=== PATIENT | female | born 1990 | race Caucasian/White ===

== ENCOUNTER 2018-08-08 02:47 | Emergency (ER) | payer SELFPAY ==
[2018-08-08 03:31] VITALS: BP 119/68
== END 2018-08-08 05:15 | disposition left against medical advice (07) ==
LOC: ED 02:47
DX: R21 Rash and other nonspecific skin eruption (principal); Z53.21 Procedure and treatment not carried out due to patient leaving prior to being seen by health care provider

== ENCOUNTER 2018-11-24 19:57 | Emergency (ER) | payer SELFPAY ==
[2018-11-24 20:30] VITALS: BP 106/73
--- NOTE | 2018-11-24 20:31 | Emergency Department Report ---
Blank Doc - Documentation Documentation: 28 y.o. female presents to emergency room with evaluation of sharp pain. Delilah ent reports pain was sharp which has resolved. History of chest pain associated with anxiety. States symptoms started after discontinuous of adderal after high school. cc: palpations and SOB EKG ordered MSE complete Fast Track for evaluation
== END 2018-11-24 21:45 | disposition left against medical advice (07) ==
LOC: ED 19:57
DX: R06.02 Shortness of breath (principal); R07.9 Chest pain, unspecified; Z53.21 Procedure and treatment not carried out due to patient leaving prior to being seen by health care provider
CPT/HCPCS: 93005; 93010

== ENCOUNTER 2021-08-27 22:45 | Emergency (ER) | payer MEDICAID ==
[2021-08-27 23:26] VITALS: BP 123/78
[2021-08-27] MEDS ORDERED: SODIUM CHLORIDE 0.9% 1000 ML 1,000 ML IV ONE (23:29)
[2021-08-27] MEDS ORDERED: METOCLOPRAMIDE 10 MG/2 ML INJ IV ONE (23:29)
[2021-08-27] MEDS ORDERED: diphenhydrAMINE 50 MG/ML VIAL IV ONE (23:29)
--- NOTE | 2021-08-28 00:03 | Emergency Department Report ---
ED General Adult HPI - General Chief complaint: Abdominal Pain Stated complaint: VOMITING/STOMACH PAIN Time Seen by Provider: 08/27/21 23:28 Source: patient Mode of arrival: Ambulatory Limitations: No Limitations - History of Present Illness Initial comments: Patient is a 31-year-old female presents emergency complaints of nausea vomiting that began 4 days ago. She states that she is having difficulty tolerating p.o. intake. States that she also has abdominal soreness. Patient states that she took positive test at home. She states her last menstrual cycle was the beginning of July. She denies any diarrhea, fever, urinary symptoms, vaginal bleeding. No past medical history. No allergies medications. /P: 0/A: 2 - Related Data Allergies Allergy/AdvReac Type Severity Reaction Status Date / Time No Known Allergies Allergy Unverified 11/24/18 20:00 ED Review of Systems ROS: Stated complaint: VOMITING/STOMACH PAIN Other details as noted in HPI Comment: All other systems reviewed and negative ED Past Medical Hx - Past Medical History Previous Medical History?: No - Surgical History Past Surgical History?: No Additional Surgical History: D&C - Social History Smoking Status: Never Smoker Substance Use Type: None ED Physical Exam - General Limitations: No Limitations General appearance: alert, in no apparent distress - Head Head exam: Present: atraumatic, normocephalic - Eye Eye exam: Present: normal appearance - ENT ENT exam: Present: mucous membranes moist - Respiratory Respiratory exam: Present: normal lung sounds bilaterally. Absent: respiratory distress, wheezes, rales, rhonchi, stridor, chest wall tenderness, accessory muscle use, decreased breath sounds, prolonged expiratory - Cardiovascular Cardiovascular Exam: Present: regular rate, normal rhythm, normal heart sounds. Absent: systolic murmur, diastolic murmur, rubs, gallop - GI/Abdominal GI/Abdominal exam: Present: soft, normal bowel sounds. Absent: distended, tenderness, guarding, rebound, rigid - Neurological Exam Neurological exam: Present: alert, oriented X3 - Psychiatric Psychiatric exam: Present: normal affect, normal mood - Skin Skin exam: Present: warm, dry, intact ED Course Vital Signs 08/27/21 23:22 Temperature 98.2 F Pulse Rate 73 Respiratory 16 Rate Blood Pressure 123/78 [Left] O2 Sat by Pulse 99 Oximetry ED Medical Decision Making - Lab Data Result diagrams: 08/27/21 23:46 08/27/21 23:46 Lab Results 08/27/21 08/27/21 08/27/21 Range/Units 23:46 23:46 Unknown WBC 13.2 H (4.5-11.0) K/mm3 RBC 4.42 (3.65-5.03) M/mm3 Hgb 14.2 (10.1-14.3) gm/dl Hct 42.2 (30.3-42.9) % MCV 96 (79-97) fl MCH 32 (28-32) pg MCHC 34 (30-34) % RDW 12.6 L (13.2-15.2) % Plt Count 278 (140-440) K/mm3 Lymph % (Auto) 23.0 (13.4-35.0) % [place] % (Auto) 8.1 H (0.0-7.3) % Eos % (Auto) 0.7 (0.0-4.3) % Baso % (Auto) 0.3 (0.0-1.8) % Lymph # (Auto) 3.0 (1.2-5.4) K/mm3 [place] # (Auto) 1.1 H (0.0-0.8) K/mm3 Eos # (Auto) 0.1 (0.0-0.4) K/mm3 Baso # (Auto) 0.0 (0.0-0.1) K/mm3 Seg Neutrophils % 67.9 (40.0-70.0) % Seg Neutrophils # 9.0 H (1.8-7.7) K/mm3 Sodium 135 L (137-145) mmol/L Potassium 3.5 L (3.6-5.0) mmol/L Chloride 100.3 (98-107) mmol/L Carbon Dioxide 20 L (22-30) mmol/L Anion Gap 18 mmol/L BUN 7 (7-17) mg/dL Creatinine 0.5 L (0.6-1.2) mg/dL Estimated GFR > 60 ml/min BUN/Creatinine Ratio 14 % Glucose 92 (65-100) mg/dL Calcium 9.6 (8.4-10.2) mg/dL Total Bilirubin 0.40 (0.1-1.2) mg/dL AST 9 (5-40) units/L ALT 7 (7-56) units/L Alkaline Phosphatase 62 (35-129) units/L Total Protein 7.9 (6.3-8.2) g/dL Albumin 4.6 (3.9-5) g/dL Albumin/Globulin Ratio 1.4 % Lipase 9 L (13-60) units/L Urine Color Yellow (Yellow) Urine Turbidity Slightly-cloudy (Clear) Urine pH 5.0 (5.0-7.0) Ur Specific [place] 1.026 (1.003-1.030) Urine Protein 100 mg/dl (Negative) mg/dL Urine Glucose (UA) Neg (Negative) mg/dL Urine Ketones 80 (Negative) mg/dL Urine Blood Sm (Negative) Urine Nitrite Neg (Negative) Urine Bilirubin Neg (Negative) Urine Urobilinogen < 2.0 (<2.0) mg/dL Ur Leukocyte Esterase Tr (Negative) Urine WBC (Auto) 6.0 (0.0-6.0) /HPF Urine RBC (Auto) 10.0 (0.0-6.0) /HPF U Epithel Cells (Auto) 18.0 H (0-13.0) /HPF Urine Bacteria (Auto) 1+ (Negative) /HPF Urine Mucus 3+ /HPF - Medical Decision Making Patient is a 31-year-old female presents emergency complaints of nausea vomiting that began 4 days ago. She states that she is having difficulty tolerating p.o. intake. States that she also has abdominal soreness. Patient states that she took positive test at home. She states her last menstrual cycle was the beginning of July. She denies any diarrhea, fever, urinary symptoms, vaginal bleeding. No past medical history. No allergies medications. /P: 0/A: 2. Vitals are normal. No abdominal tenderness on exam. Advised patient that we would order labs, urine, and if her hCG was positive she will be sent for OB ultrasound to determine location. Ordered IV medications and IV fluids. I was advised by acting professor the patient was given Reglan, Benadryl, and approximately 500 mL of the IV fluids and then she stated that she wanted to leave and follow-up with her [facility] outpatient. Patient's IV was removed by acting professor and she was advised that she would need to leave AGAINST MEDICAL ADVICE that she has not had a full complete medical examination. The patient is alert and oriented x3. The patient exhibits decision-making capacity. The patient is free from distracting injury. The risk of leaving without a complete medical examination, and AGAINST MEDICAL ADVICE, were explained to the patient, and they included , disability, paralysis, permanent loss of quality of life. Patient verbalized understanding to these and was able to articulate these risk in their own words. Critical care attestation.: If time is entered above; I have spent that time in minutes in the direct care of this critically ill patient, excluding procedure time. ED Disposition Clinical Impression: Abdominal pain Qualifiers: Abdominal location: lower abdomen, unspecified Qualified Code(s): R10.30 - Lower abdominal pain, unspecified Nausea & vomiting Qualifiers: Vomiting type: unspecified Vomiting Intractability: non-intractable Qualified Code(s): R11.2 - Nausea with vomiting, unspecified Disposition: 07 LEFT AGAINST MEDICAL ADVICE Is pt being admited?: No Does the pt Need Aspirin: No Condition: Undetermined Instructions: Abdominal Pain (ED) Forms: AMA Form
[2021-08-28 00:59] LABS: Basophils % (Auto) 0.3 % (0.0-1.8); Eosinophils # (Auto) 0.1 K/mm3 (0.0-0.4); Eosinophils % (Auto) 0.7 % (0.0-4.3); Hematocrit 42.2 % (30.3-42.9); Hemoglobin 14.2 gm/dl (10.1-14.3); Mean Corpuscular HGB Conc 34 % (30-34); Mean Corpuscular Volume 96 fl (79-97); Monocytes # (Auto) 1.1 K/mm3 (0.0-0.8); Monocytes % (Auto) 8.1 % (0.0-7.3); Platelet Count 278 K/mm3 (140-440); Red Blood Count 4.42 M/mm3 (3.65-5.03); Red Cell Distribution Width 12.6 % (13.2-15.2)
[2021-08-28 01:22] LABS: Bacteria,Urine 1+ /HPF (Negative); Bilirubin,Urine NEG (Negative); Blood,Urine SM (Negative); Color,Urine Yellow (Yellow); Mucus,Urine 3+ /HPF; Urobilinogen,Urine < 2.0 mg/dL (<2.0)
[2021-08-28 01:26] LABS: Alanine Aminotransferase 7 units/L (7-56); Albumin 4.6 g/dL (3.9-5); Blood Urea Nitrogen 7 mg/dL (7-17); Calcium 9.6 mg/dL (8.4-10.2); Hemolysis Index 16
[2021-08-28 01:28] LABS: BUN/Creatinine Ratio 14
== END 2021-08-28 00:17 | disposition left against medical advice (07) ==
LOC: ED 22:45
DX: R10.30 Lower abdominal pain, unspecified (principal); R11.2 Nausea with vomiting, unspecified
CPT/HCPCS: 36415; 80053; 81001; 83690; 84702; 85025; 96361; 96374; 96375; 99283; J1200; J2765; J7030

== ENCOUNTER 2021-08-31 19:55 | Emergency (ER) | payer MEDICAID ==
[2021-08-31] MEDS ORDERED: SODIUM CHLORIDE 0.9% 1000 ML 1,000 ML IV ONE (20:55)
[2021-08-31] MEDS ORDERED: METOCLOPRAMIDE 10 MG/2 ML INJ IV ONE (20:55)
[2021-08-31] MEDS ORDERED: diphenhydrAMINE 50 MG/ML VIAL IV STA (20:56)
--- NOTE | 2021-08-31 21:08 | Emergency Department Report ---
ED General Adult HPI - General Chief complaint: Abdominal Pain Stated complaint: NAUSEA/VOMITING Time Seen by Provider: 08/31/21 20:43 Source: patient Mode of arrival: Ambulatory Limitations: No Limitations - History of Present Illness Initial comments: 31-year-old -[place] female currently presents emerged department complaining of cyclic nausea and vomiting cramping now associated with weakness and presyncopal. She has been seen at emergency department a few times for similar symptoms but left AMA on the prior. She reports no hemoptysis no hematemesis hematochezia, no fever, chills, sweats. She denied need to follow-up with an [facility] but does have an appointment in the morning. She is currently taking no medications reports no known history of anemia no abdomen abdominal trauma. -: Gradual Radiation: non-radiation Quality: aching, dull Consistency: constant Improves with: none Worsens with: none Associated Symptoms: denies other symptoms Treatments Prior to Arrival: none - Related Data Previous Rx's Medication Instructions Recorded Last Taken Type Doxylamine Succinate/Vit B6 1 each PO BID #20 tablet. 09/01/21 Unknown Rx [Diclegis Dr 10-10 mg Tablet] Allergies Allergy/AdvReac Type Severity Reaction Status Date / Time No Known Allergies Allergy Unverified 11/24/18 20:00 ED Review of Systems ROS: Stated complaint: NAUSEA/VOMITING Other details as noted in HPI Comment: All other systems reviewed and negative ED Past Medical Hx - Past Medical History Previous Medical History?: No - Surgical History Past Surgical History?: No Additional Surgical History: D&C - Social History Smoking Status: Never Smoker Substance Use Type: None - Medications Home Medications: Home Medications Medication Instructions Recorded Confirmed Last Taken Type Doxylamine Succinate/Vit B6 1 each PO BID #20 tablet. 09/01/21 Unknown Rx [Diclegis Dr 10-10 mg Tablet] ED Physical Exam - General Limitations: No Limitations General appearance: alert, in no apparent distress - Head Head exam: Present: atraumatic, normocephalic, normal inspection - Eye Eye exam: Present: normal appearance, PERRL, EOMI Pupils: Present: normal accommodation - ENT ENT exam: Present: normal exam, normal orophraynx, mucous membranes moist, TM's normal bilaterally - Neck Neck exam: Present: normal inspection, full ROM. Absent: tenderness, lymphadenopathy - Respiratory Respiratory exam: Present: normal lung sounds bilaterally. Absent: respiratory distress, wheezes - Cardiovascular Cardiovascular Exam: Present: regular rate, normal rhythm. Absent: systolic murmur, diastolic murmur, rubs, gallop - GI/Abdominal GI/Abdominal exam: Present: soft, normal bowel sounds - Extremities Exam Extremities exam: Present: normal inspection - Back Exam Back exam: Present: normal inspection - Neurological Exam Neurological exam: Present: alert, oriented X3 - Psychiatric Psychiatric exam: Present: normal affect, normal mood - Skin Skin exam: Present: warm, dry, intact, normal color. Absent: rash ED Course Vital Signs 08/31/21 20:26 Temperature 98.9 F Pulse Rate 71 Respiratory 14 Rate Blood Pressure 119/78 O2 Sat by Pulse 99 Oximetry ED Medical Decision Making - Lab Data Result diagrams: 08/31/21 21:03 08/31/21 21:03 Critical care attestation.: If time is entered above; I have spent that time in minutes in the direct care of this critically ill patient, excluding procedure time. ED Disposition Clinical Impression: Pelvic pain affecting Disposition: 01 HOME / SELF CARE / HOMELESS Is pt being admited?: No Does the pt Need Aspirin: No Condition: Stable Instructions: Abdominal Pain (ED), Pelvic Pain, Female, Pain Without a Known Cause Additional Instructions: He was seen in emergency department for pelvic pain cramping during as well as cyclic nausea and vomiting. Please take medication as prescribed for nausea and vomiting keep the appointment with the [facility] to further evaluate the pain although the ultrasound was normal and labs did not reveal any significant abnormalities Prescriptions: Doxylamine Succinate/Vit B6 [Samantha Loredo 10-10 mg Tablet] 1 each PO BID #20 tablet. Referrals: PRIMARY CARE, [Primary Care Provider] - 3-5 Days [facility] [Provider Group] - 3-5 Days
[2021-08-31 21:19] LABS: Basophils # (Auto) 0.1 K/mm3 (0.0-0.1); Basophils % (Auto) 0.5 % (0.0-1.8); Eosinophils # (Auto) 0.1 K/mm3 (0.0-0.4); Eosinophils % (Auto) 0.6 % (0.0-4.3); Hematocrit 41.2 % (30.3-42.9); Hemoglobin 13.8 gm/dl (10.1-14.3); Lymphocytes # (Auto) 2.1 K/mm3 (1.2-5.4); Lymphocytes % (Auto) 17.8 % (13.4-35.0); Mean Corpuscular HGB Conc 33 % (30-34); Mean Corpuscular Volume 95 fl (79-97); Monocytes # (Auto) 0.9 K/mm3 (0.0-0.8); Monocytes % (Auto) 7.6 % (0.0-7.3); Platelet Count 238 K/mm3 (140-440); Red Blood Count 4.36 M/mm3 (3.65-5.03); Red Cell Distribution Width 12.6 % (13.2-15.2)
[2021-08-31 21:34] LABS: Blood Urea Nitrogen 8 mg/dL (7-17); Calcium 9.6 mg/dL (8.4-10.2); Hemolysis Index 24
[2021-08-31 21:36] LABS: BUN/Creatinine Ratio 20
--- NOTE | 2021-09-01 03:02 | Ultrasound Report ---
ULTRASOUND PELVIS INDICATION: and pelvic pain. TECHNIQUE: Transabdominal. Duplex Color Doppler used: Yes. COMPARISON: None available FINDINGS: Uterus: Present. Size: 8.4 x 5 x 5.5 cm. Endometrial complex: Early viable intrauterine is dated 6 weeks 6 days by ultrasound. heart tones are 147 bpm. Mass lesions: None. Additional findings: None. Right Ovary --nonvisualized. Left Ovary-- Normal. Blood flow: Normal. Cyst or mass: None. Urinary Bladder: Normal. Free Fluid: None. Additional Findings: None. IMPRESSION: 1. Early intrauterine dated 6 weeks 6 days by ultrasound. 2. Right ovary not visualized. No adnexal abnormality identified. Signer Name: Alexandre Mclaughlin MD Signed: 09/01/2021 2:58 AM Workstation Name: [id number]
[2021-09-01 03:56] VITALS: BP 114/67
== END 2021-09-01 03:57 | disposition home or self-care (01) ==
LOC: ED 19:55
DX: O26.899 Other specified pregnancy related conditions, unspecified trimester (principal); R10.2 Pelvic and perineal pain; Z3A.00 Weeks of gestation of pregnancy not specified
CPT/HCPCS: 36415; 76801; 80048; 83690; 84702; 85025; 96361; 96374; 96375; 99284; J1200; J2765; J7030; Q0162

== ENCOUNTER 2021-09-12 17:11 | Emergency (ER) | payer MEDICAID ==
[2021-09-12] MEDS ORDERED: FLEET ENEMA PR ONE (19:29)
--- NOTE | 2021-09-12 20:41 | Emergency Department Report ---
ED General Adult HPI - General Chief complaint: Medical Clearance Stated complaint: FECAL IMPACTION Time Seen by Provider: 09/12/21 17:37 Source: patient Mode of arrival: Ambulatory Limitations: No Limitations - History of Present Illness Initial comments: 31-year-old female presents to ED with fecal impaction. Patient reports she is 8 weeks . States she believes the Zofran that she is taking for her nausea and vomiting due to her is causing constipation. Patient reports fecal impaction. States she used a suppository but it did not help. -: days(s) (2) Severity scale (0 -10): 10 Quality: other (Pressure) Consistency: constant Improves with: none Worsens with: none Associated Symptoms: denies other symptoms Treatments Prior to Arrival: other (Rectal suppository) - Related Data Previous Rx's Medication Instructions Recorded Last Taken Type Doxylamine Succinate/Vit B6 1 each PO BID #20 tablet. 09/01/21 Unknown Rx [Samantha Loredo 10-10 mg Tablet] Docusate Sodium [Colace] 100 mg PO BID #60 capsule 09/12/21 Unknown Rx Allergies Allergy/AdvReac Type Severity Reaction Status Date / Time No Known Allergies Allergy Unverified 11/24/18 20:00 ED Review of Systems ROS: Stated complaint: FECAL IMPACTION Other details as noted in HPI Comment: All other systems reviewed and negative Constitutional: denies: fever Gastrointestinal: constipation. denies: abdominal pain ED Past Medical Hx - Past Medical History Previous Medical History?: No - Surgical History Past Surgical History?: No Additional Surgical History: D&C - Social History Smoking Status: Never Smoker Substance Use Type: None - Medications Home Medications: Home Medications Medication Instructions Recorded Confirmed Last Taken Type Doxylamine Succinate/Vit B6 1 each PO BID #20 tablet. 09/01/21 Unknown Rx [Samantha Loredo 10-10 mg Tablet] Docusate Sodium [Colace] 100 mg PO BID #60 capsule 09/12/21 Unknown Rx ED Physical Exam - General Limitations: No Limitations General appearance: alert, in no apparent distress - Head Head exam: Present: atraumatic, normocephalic - Eye Eye exam: Present: normal appearance, EOMI - ENT ENT exam: Present: mucous membranes moist - Neck Neck exam: Present: normal inspection - Respiratory Respiratory exam: Present: normal lung sounds bilaterally. Absent: respiratory distress - Cardiovascular Cardiovascular Exam: Present: regular rate, normal rhythm - GI/Abdominal GI/Abdominal exam: Present: soft. Absent: distended, tenderness - Rectal Rectal exam: Present: fecal impaction - Extremities Exam Extremities exam: Present: normal inspection - Neurological Exam Neurological exam: Present: alert, oriented X3 - Psychiatric Psychiatric exam: Present: normal affect, normal mood - Skin Skin exam: Present: warm, dry, intact, normal color ED Course Vital Signs 09/12/21 09/12/21 17:14 20:48 Temperature 98.8 F Pulse Rate 82 78 Respiratory 18 12 Rate Blood Pressure 108/59 116/68 [Right] O2 Sat by Pulse 100 100 Oximetry ED Medical Decision Making - Medical Decision Making Patient did not tolerate disimpaction, so enema was given. Enema was successful, patient reports passage of stool. States she is feeling much better. Will discharge at this time. Spoke with patient regarding drinking water and increasing fiber in her diet. Outpatient follow-up advised, return precautions given. - Differential Diagnosis Constipation, fecal impaction Critical care attestation.: If time is entered above; I have spent that time in minutes in the direct care of this critically ill patient, excluding procedure time. ED Disposition Clinical Impression: Constipation, Fecal impaction Disposition: 01 HOME / SELF CARE / HOMELESS Is pt being admited?: No Condition: Stable Instructions: High-Fiber Diet, Vegan Diet, Constipation, Adult, [id number], Fiber Content in Foods Prescriptions: Docusate Sodium [Colace] 100 mg PO BID #60 capsule Referrals: PRIMARY CARE, [Primary Care Provider] - 3-5 Days Time of Disposition: 20:41
[2021-09-12 20:49] VITALS: BP 116/68
== END 2021-09-12 20:51 | disposition home or self-care (01) ==
LOC: ED 17:11
DX: O26.891 Other specified pregnancy related conditions, first trimester (principal); K56.41 Fecal impaction; Z79.899 Other long term (current) drug therapy; Z3A.01 Less than 8 weeks gestation of pregnancy
CPT/HCPCS: 99282; 99283